=== PATIENT | female | born 1995 | race Caucasian/White ===

== ENCOUNTER 2017-02-25 19:34 | Emergency (ER) | payer OTHER ==
[2017-02-25] MEDS ORDERED: OXYCODONE-ACETAMINOPHEN 5-325 MG TABLET PO ONE (20:54)
[2017-02-25] MEDS ORDERED: PROMETHAZINE HCL 25 MG TABLET PO ONE (20:54)
[2017-02-25] MEDS ORDERED: DIPH/PERTUSS(ACELL)/TETANUS VAC/PF 0.5 ML SYR (>=10YO) IM ONE (20:54)
--- NOTE | 2017-02-25 20:56 | ER Document Report ---
ED Medical Screen (RME) - General Chief Complaint: Laceration Stated Complaint: LEFT THUMB LACERATION Time Seen by Provider: 02/25/17 20:54 Notes: 22-year-old female, chief complaint of laceration to the tip of the left thumb with avulsion, happened accidentally when cutting potatoes just prior to arrival , patient is not up-to-date on her tetanus, no other injuries. TRAVEL OUTSIDE OF THE [place] IN LAST 30 DAYS: No - Related Data Allergies/Adverse Reactions: No Known Allergies Allergy (Verified 02/25/17 20:31) Past Medical History Renal/ Medical History: Denies: Hx Peritoneal Dialysis Physical Exam - Vital signs Vitals: Temp Pulse Resp BP Pulse Ox 98.0 F 69 16 110/81 98 02/25/17 20:31 02/25/17 20:31 02/25/17 20:31 02/25/17 20:31 02/25/17 20:31 - Extremities General upper extremity: Other - Avulsion of the distal finger pads of the left thumb with current bleeding, no other injuries noted, normal hand examination including neurovascular exam otherwise Course - Re-evaluation Re-evalutation: Fairly heavy bleeding from the avulsion, Quick-clot placed, bandage placed, patient hysterically crying and inconsolable at this time, instead of additional dressings and discharge agreed to pain medication and replacement with reevaluation. - Vital Signs Vital signs: Temp Pulse Resp BP Pulse Ox 98.0 F 69 16 110/81 98 02/25/17 20:31 02/25/17 20:31 02/25/17 20:31 02/25/17 20:31 02/25/17 20:31
[2017-02-25] MEDS ORDERED: HYDROCODONE/ACETAMINOPHEN 5-325 MG 6 TAB/DSPK PO PRN (22:50)
[2017-02-25] MEDS ORDERED: SULFAMETHOXAZOLE/TRIMETHOPRIM 800-160 MG TABLET PO ONE (22:50)
--- NOTE | 2017-02-25 22:55 | ER Document Report ---
ED Wound - General Chief Complaint: Laceration Stated Complaint: LEFT THUMB LACERATION Time Seen by Provider: 02/25/17 20:54 Notes: Patient is a 22-year-old female, chief complaint of laceration to the tip of the left thumb with avulsion, happened accidentally when cutting potatoes just prior to arrival, patient is not up-to-date on her tetanus, no other injuries. TRAVEL OUTSIDE OF THE [place] IN LAST 30 DAYS: No - Related Data Allergies/Adverse Reactions: No Known Allergies Allergy (Verified 02/25/17 20:31) Past Medical History - General Information source: Patient, Relative - Social History Smoking Status: Never Smoker Drug Abuse: None Lives with: Family Family History: Reviewed & Not Pertinent Patient has suicidal ideation: No Patient has homicidal ideation: No - Past Medical History Cardiac Medical History: Reports: Hx Hypertension Pulmonary Medical History: Reports: Hx Asthma Renal/ Medical History: Denies: Hx Peritoneal Dialysis Past Surgical History: Reports: Hx Oral Surgery - Immunizations Hx Diphtheria, Pertussis, Tetanus Vaccination: Yes Review of Systems - Review of Systems Constitutional: No symptoms reported EENT: No symptoms reported Cardiovascular: No symptoms reported Respiratory: No symptoms reported Gastrointestinal: No symptoms reported Genitourinary: No symptoms reported Female Genitourinary: No symptoms reported Musculoskeletal: See HPI Skin: See HPI Hematologic/Lymphatic: No symptoms reported Neurological/Psychological: No symptoms reported Physical Exam - Vital signs Vitals: Temp Pulse Resp BP Pulse Ox 98.0 F 69 16 110/81 98 02/25/17 20:31 02/25/17 20:31 02/25/17 20:31 02/25/17 20:31 02/25/17 20:31 Interpretation: Normal - General General appearance: Appears well, Alert In distress: None - Patient calm and relaxed on my secondary evaluation after triage - HEENT Head: Normocephalic, Atraumatic Eyes: Normal Conjunctiva: Normal Extraocular movements intact: Yes Eyelashes: Normal Pupils: PERRL Pharynx: Normal Neck: Normal - Respiratory Respiratory status: No respiratory distress Chest status: Nontender Breath sounds: Normal Chest palpation: Normal - Cardiovascular Rhythm: Regular Heart sounds: Normal auscultation Murmur: No - Abdominal Inspection: Normal Distension: No distension Bowel sounds: Normal Tenderness: Nontender Organomegaly: No organomegaly - Back Back: Normal, Nontender - Extremities General upper extremity: Other - There is an avulsion injury to the left thumb distal pad, no nail injury, normal capillary refill of the rest of the thumb, normal range of motion, normal sensation. Normal hand exam otherwise. General lower extremity: Normal inspection, Nontender, Normal color, Normal ROM , Normal temperature, Normal weight bearing. No: Nimco's sign - Neurological Neuro grossly intact: Yes Cognition: Normal Orientation: AAOx4 [place] Coma Scale Eye Opening: Spontaneous Micky Coma Scale Verbal: Oriented [place] Coma Scale Motor: Obeys Commands Micky Coma Scale Total: 15 Speech: Normal Motor strength normal: LUE, RUE, LLE, RLE Sensory: Normal - Psychological Associated symptoms: Normal affect, Normal mood - Skin Skin Temperature: Warm Skin Moisture: Dry Skin Color: Normal Course - Re-evaluation Re-evalutation: Patient with avulsion injury to the left thumb tip, no other injuries noted, no repairable wounds. This was cleaned with surgical cleanser, dressed with Xeroform and bulky dressing, did not bleed to the dressing on reevaluation. Discussed wound care, will place on prophylactic antibiotic because patient states she cut through her glove and had a dirty knife, discussed follow-up, discussed return precautions, patient and state understanding and agreement. - Vital Signs Vital signs: Temp Pulse Resp BP Pulse Ox 98 F 67 17 117/74 100 02/25/17 23:13 02/25/17 23:13 02/25/17 23:13 02/25/17 23:13 02/25/17 23:13 Discharge - Discharge Clinical Impression: Fingertip avulsion Qualifiers: Encounter type: initial encounter Qualified Code(s): S61.209A - Unspecified open wound of unspecified finger without damage to nail, initial encounter Condition: Stable Disposition: HOME, SELF-CARE Additional Instructions: Keep the current dressing on for 48 hours, afterwards apply topical antibiotic and protective dressing. Avoid soaking for about 4 days at least. Take the prescribed antibiotic as directed. You were given a narcotic medication tonight for treatment of this. Return to the emergency department immediately for any signs of infection afterwards including redness, swelling, discolored drainage, fever, etc. Prescriptions: Sulfamethoxazole/Trimethoprim [Bactrim Ds Tablet] 1 each PO BID #10 tablet Forms: Narcotics and Sedatives, Return to Work
[2017-02-25 23:18] VITALS: BP 117/74
== END 2017-02-25 23:13 | disposition home or self-care (01) ==
LOC: ER 19:34
DX: S61.021A Laceration with foreign body of right thumb without damage to nail, initial encounter (principal); W26.0XXA Contact with knife, initial encounter; Y93.G1 Activity, food preparation and clean up; I10 Essential (primary) hypertension; Z23 Encounter for immunization
CPT/HCPCS: 99282

== ENCOUNTER 2017-04-17 14:43 | Emergency (ER) | payer OTHER ==
--- NOTE | 2017-04-17 15:24 | ER Document Report ---
ED Medical Screen (RME) - General Chief Complaint: Abdominal Pain Stated Complaint: CHECK Time Seen by Provider: 04/17/17 15:18 Mode of Arrival: Ambulatory Information source: Patient, [facility] Records TRAVEL OUTSIDE OF THE [place] IN LAST 30 DAYS: No - HPI Onset: Other - 1 month Onset/Duration: Constant Quality of pain: Dull Severity: Mild Associated Symptoms: Nausea, Vomiting Exacerbated by: Denies Relieved by: Denies Notes: 04/17/17 15:22 Patient is a 22-year-old female who believes she is approximately 8 weeks based on her last menstrual period. Patient has not seen XRAY TECH yet. Patient presents with a one-month history of lower quadrant abdominal pain. Patient also reports nausea and vomiting. Patient reportedly went to XRAY TE[facility] today and was told to come to the emergency department due to insurance issues. No fevers or chills. Patient denies any urinary complaints. No back pain. No leakage of fluid or vaginal bleeding. - Related Data Allergies/Adverse Reactions: No Known Allergies Allergy (Verified 04/17/17 14:59) Past Medical History - General Information source: Patient, [facility] Records - Social History Cigarette use (# per day): No Chew tobacco use (# tins/day): No - Past Medical History Cardiac Medical History: Reports: Hx Hypertension Pulmonary Medical History: Reports: Hx Asthma Renal/ Medical History: Denies: Hx Peritoneal Dialysis Past Surgical History: Reports: Hx Oral Surgery - wisdom teeth - Immunizations Hx Diphtheria, Pertussis, Tetanus Vaccination: Yes Review of Systems - Review of Systems Gastrointestinal: Abdominal pain, Nausea, Vomiting -: Yes All other systems reviewed and negative Physical Exam - Vital signs Vitals: Temp Pulse Resp BP Pulse Ox 98.4 F 84 16 114/63 99 04/17/17 14:59 04/17/17 14:59 04/17/17 14:59 04/17/17 14:59 04/17/17 14:59 Interpretation: Normal - General General appearance: Appears well, Alert - HEENT Head: Normocephalic, Atraumatic Eyes: Normal Pupils: PERRL - Respiratory Respiratory status: No respiratory distress Chest status: Nontender Breath sounds: Normal Chest palpation: Normal - Cardiovascular Rhythm: Regular Heart sounds: Normal auscultation Murmur: No - Abdominal Inspection: Normal Distension: No distension Bowel sounds: Normal Tenderness: Nontender Organomegaly: No organomegaly Notes: There is no focal abdominal tenderness upon palpation. - Back Back: Normal, Nontender - Extremities General upper extremity: Normal inspection, Nontender, Normal color, Normal ROM , Normal temperature General lower extremity: Normal inspection, Nontender, Normal color, Normal ROM , Normal temperature, Normal weight bearing. No: Nimco's sign - Neurological Neuro grossly intact: Yes Cognition: Normal Orientation: AAOx4 [place] Coma Scale Eye Opening: Spontaneous Micky Coma Scale Verbal: Oriented [place] Coma Scale Motor: Obeys Commands Micky Coma Scale Total: 15 Speech: Normal Motor strength normal: LUE, RUE, LLE, RLE Sensory: Normal - Psychological Associated symptoms: Normal affect, Normal mood - Skin Skin Temperature: Warm Skin Moisture: Dry Skin Color: Normal Course - Re-evaluation Re-evalutation: 04/17/17 15:23 Patient presents with one-month history of lower abdominal pain. Doubt ectopic given duration of symptoms. Will get quantitative hCG and if appropriate, will order ultrasound. 04/17/17 18:04 Ultrasound report reviewed and discussed with patient. Patient understands need for XRAY TE[facility] follow-up. - Vital Signs Vital signs: Temp Pulse Resp BP Pulse Ox 98.4 F 84 16 114/63 99 04/17/17 14:59 04/17/17 14:59 04/17/17 14:59 04/17/17 14:59 04/17/17 14:59 - Laboratory Laboratory results interpreted by me: 04/17/17 04/17/17 15:33 15:40 Beta HCG, Quant [id number] H Urine HCG, Qual POSITIVE H - Diagnostic Test Radiology reviewed: Reports reviewed Radiology results interpreted by me: 04/17/17 18:04 Radiology, 8 week 6 day IUP Doctor's Discharge - Discharge Clinical Impression: Condition: Good Disposition: HOME, SELF-CARE Instructions: Pelvic Pain in ([facility]) Additional Instructions: Follow-up with your XRAY TECH doctor. Tylenol is safe in as needed for pain. Return to the emergency department if worse or for any other problems.
[2017-04-17 15:56] LABS: AMORPHOUS SEDIMENT,URINE TRACE /HPF; APPEARANCE,URINE SLIGHTLY-CLOUDY; BILIRUBIN,URINE NEGATIVE (NEGATIVE); GLUCOSE, URINE NEGATIVE (NEGATIVE); KETONES,URINE NEGATIVE (NEGATIVE); LEUKOCYTE ESTERASE,URINE NEGATIVE (NEGATIVE); NITRITE,URINE NEGATIVE (NEGATIVE); PROTEIN,URINE NEGATIVE (NEGATIVE); URINE SPECIFIC GRAVITY 1.009; UROBILINOGEN,URINE NEGATIVE mg/dL (<2.0)
--- NOTE | 2017-04-17 17:58 | RADIOLOGY REPORT (SQ) ---
EXAM DESCRIPTION: U/S OB TRANSVAG W/DOPPLER COMPLETED DATE/TIME: 04/17/2017 5:41 pm REASON FOR STUDY: preg, pelvic pain COMPARISON: None. TECHNIQUE: Transabdominal static and realtime grayscale images acquired of the pelvis. Additional se lected spectral and color Doppler images recorded. All images stored on PACs. bHCG: Not available. LIMITATIONS: None. FINDINGS: FETUS: Living intrauterine . EGA: 8 weeks 6 days MARGARITA: 11/21/2017 FHR: 175 beats per minute. SUBCHORIONIC BLEED: No SIZE OF BLEED: Not applicable. UTERUS: No masses. No anomalies. CERVICAL LENGTH: Not documented. Closed. RIGHT ADNEXA: Normal ovary with normal vascular flow. No adnexal free fluid. 2.8 cm cyst. LEFT ADNEXA: Normal ovary with normal vascular flow. No adnexal free fluid. No adnexal masses. FREE FLUID: None. OTHER: No other significant finding. IMPRESSION: LIVING INTRAUTERINE . EGA 8 weeks 6 days. Right ovarian cysts. Trimester of : First - 0 to 13 weeks. TECHNICAL DOCUMENTATION: JOB ID: [id number] [employer]- All Rights Reserved
[2017-04-17 18:08] VITALS: BP 112/63
== END 2017-04-17 18:05 | disposition home or self-care (01) ==
LOC: ER 14:43
DX: O26.891 Other specified pregnancy related conditions, first trimester (principal); R10.30 Lower abdominal pain, unspecified; O21.9 Vomiting of pregnancy, unspecified; O99.511 Diseases of the respiratory system complicating pregnancy, first trimester; J45.909 Unspecified asthma, uncomplicated; O16.1 Unspecified maternal hypertension, first trimester; Z3A.08 8 weeks gestation of pregnancy
CPT/HCPCS: 36415; 76817; 81001; 81025; 84702; 93976; 99284